=== PATIENT | female | born 1945 | race Caucasian/White ===

== ENCOUNTER 2016-10-01 05:51 | Day surgery (SDC) | payer MEDICARE, BC ==
[~2016-10-01 05:51] MED LIST: AMINOPYRIDINE; BACLOFEN10 M1 PO; BACLOFEN10 MG PO; BACLOFEN20 M1 PO; BACLOFEN20 MG; BACTRIM DS TAB1 EAC2 PO; BACTRIM DS1 TAB PO; CALCIUM WITH VI1 TAB PO; CEFTRIAXONE1 GM IV; CIPRO500 M2 PO; CRANBERRY URIN1 EACH PO; FOSAMAX70 MG/75 M; LEVAQUIN500 MG PO; METHENAMINE HIPP1 G1 PO; MULTIVITAMIN1 TAB; MULTIVITAMINS1 EAC6 PO; OXYCODONE/APAP PO; STOOL SOFTENER100 M2 PO; TRIMETHOPRIM100 MG; VITAMIN C WIT1000 M3 PO; VITAMIN D3 PO; WOMENS MULTIPLE1 TAB PO; [UNRECOGNIZED DRUG - OTHER]
[2016-10-01 06:59] LABS: PROTHROMBIN TIME 11.3 SECONDS (9.0-13.6)
[2016-12-13] MEDS ORDERED: CIPRO500 M2 PO (10:40)
[2016-12-13] MEDS ORDERED: AMOXICILLIN875 M1 PO (10:41)
== END 2016-10-01 10:48 ==
LOC: SRG 05:51 → SHSC 05:52 → ORE 07:32 → PACU 08:54 → SHSC 09:20
PROVIDERS: Urology
PROC: 0TF4XZZ Fragmentation in Left Kidney Pelvis, External Approach (ICD-10-PCS; principal; 2016-10-01)
DX: N20.2 Calculus of kidney with calculus of ureter (principal); G35 Multiple sclerosis; M81.0 Age-related osteoporosis without current pathological fracture; Z90.89 Acquired absence of other organs; Z79.899 Other long term (current) drug therapy; Z87.440 Personal history of urinary (tract) infections; Z98.890 Other specified postprocedural states
CPT/HCPCS: J1956

== ENCOUNTER 2016-12-17 05:42 | Day surgery (SDC) | payer MEDICARE, BC ==
[~2016-12-17 05:42] MED LIST changes: +AMOXICILLIN875 M1 PO
[2016-12-17 06:47] LABS: INR 0.9 INR (0.9-1.1)
== END 2016-12-17 11:22 ==
LOC: SRG 05:42 → SHSC 05:46 → ORE 07:35 → PACU 08:43 → SHSC 09:10
PROVIDERS: Urology
PROC: 0TF4XZZ Fragmentation in Left Kidney Pelvis, External Approach (ICD-10-PCS; principal; 2016-12-17)
DX: N20.0 Calculus of kidney (principal); M81.0 Age-related osteoporosis without current pathological fracture; G35 Multiple sclerosis; E55.9 Vitamin D deficiency, unspecified; K59.09 Other constipation; Z79.899 Other long term (current) drug therapy; Z87.440 Personal history of urinary (tract) infections; Z98.890 Other specified postprocedural states
CPT/HCPCS: J1956